=== PATIENT | male | born 1990 | race Hispanic/Latino ===

== ENCOUNTER 2020-09-10 01:35 | Emergency (ER) | payer SELFPAY ==
[2020-09-10] MEDS ORDERED: Morphine 4 MG/ML VIAL ONE (02:04)
== END 2020-09-10 03:50 | disposition home or self-care (01) ==
LOC: ERS 01:35
DX: N50.811 Right testicular pain (principal); R10.31 Right lower quadrant pain
CPT/HCPCS: 76870; 93976; 96374; J2270